=== PATIENT | male | born 1965 | race Caucasian/White ===

== ENCOUNTER → 2021-05-08 | Outpatient (CLI) | payer MEDICARE, OTHER ==
--- NOTE | 2021-05-08 15:30 | CT ---
EXAMINATION TYPE: CT abdomen pelvis wo con DATE OF EXAM: 05/08/2021 COMPARISON: 01/15/2017 HISTORY: 56-year-old male N20.0, right flank pain CT DLP: 745 mGycm. Automated exposure control for dose reduction was used. TECHNIQUE: Contiguous axial scanning of the abdomen and pelvis without IV contrast. Coronal and sagit lakeisha reconstructions performed. FINDINGS: Heart normal size with trace anterior pericardial fluid. Dependent atelectasis posterior right base, improved from 2017. Mild diffuse bronchial wall thickening can be seen with bronchitis or asthma. No pleural effusion. Liver enlarged at 20.1 cm. Otherwise, noncontrast appearance of the liver, adrenal glands, and left k idney with extrarenal pelvis show no gross abnormality. Cholecystectomy clips. A 1.2 cm nodular area in tail of pancreas is unchanged from 2017 suggesting a benign etiology. Anterior hilar splenule and mild splenomegaly of 14.2 cm (versus 13.4 cm, previously). There is a large 1.7 cm calculus centered within the right renal pelvis. There is fullness of the rig ht renal collecting system but without mychal hydronephrosis. Urothelial thickening and minimal surrou nding fat stranding is noted. No dilated small bowel, free fluid, or free air. No mesenteric or retroperitoneal lymphadenopathy. Some hyperdense, inspissated material within a normal caliber appendix. No surrounding inflammation. Some submucosal fat deposition along the right hemicolon probably the opacity. Mild overall stool bur den. No pericolonic inflammatory change. Mild circumferential bladder wall thickening. Prostate gland enlargement 5.0 cm wide. Pelvic phleboli th. No abnormal fluid collection in the pelvis or pelvic lymphadenopathy. Patulous bilateral inguinal canals, right more so than the left. Bones: Bone island right inferior pubic ramus. [id number] degenerative change both hips. Left L 5 hemisacralization. Facet arthropathy lower lumbar spine. IMPRESSION: 1. A 1.7 cm stone within the right renal pelvis. While there is no evidence for obstruction, there is associated urothelial thickening and minimal adjacent fat stranding. This may represent inflammation secondary to irritation from the stone. Correlate to exclude ascending urinary tract infection. 2. Circumferential bladder wall thickening could represent cystitis or chronic bladder wall hypertrop hy. There is prostatomegaly of 5.0 cm wide. 3. Hepatosplenomegaly (liver 20.1 cm, spleen 14.2 cm).
== END | disposition home or self-care (01) ==
LOC: RADCTMAIN 14:44
PROVIDERS: ATTEND Urology
DX: N20.0 Calculus of kidney (principal); R16.2 Hepatomegaly with splenomegaly, not elsewhere classified; N32.89 Other specified disorders of bladder
CPT/HCPCS: 74176

== ENCOUNTER → 2021-05-14 | Outpatient (CLI) | payer MEDICARE, OTHER ==
[2021-05-14 15:18] LABS: Basophils # (A) 0.1 k/uL (0-0.2); Basophils % (A) 1 %; Eosinophils # (A) 0.3 k/uL (0-0.7); Eosinophils % (A) 3 %; HCT 50.5 % (39.0-53.0); HGB 15.9 gm/dL (13.0-17.5); Lymphocytes % (A) 26 %; MCH 27.9 pg (25.0-35.0); MCHC 31.6 g/dL (31.0-37.0); MCV 88.4 fL (80.0-100.0); Mean Platelet Volume 6.4; Monocytes # (A) 0.5 k/uL (0-1.0); Monocytes % (A) 6 %; Neutrophils # (A) 4.8 k/uL (1.3-7.7); Neutrophils % (A) 62 %; Platelet Count 332 k/uL (150-450); RBC 5.71 m/uL (4.30-5.90); RDW 13.7 % (11.5-15.5); WBC 7.7 k/uL (3.8-10.6)
[2021-05-15 01:16] LABS: Appearance,Urine Clear (Clear); Color,Urine Yellow (Yellow)
[2021-05-15 01:39] LABS: African American GFR (CKD) 93.2 (60.0-200.0); Albumin 4.2 g/dL (3.8-4.9); Anion Gap 9.8 mmol/L (10.00-18.00); Calcium 9.4 mg/dL (8.7-10.3); Carbon Dioxide 23.9 mmol/L (20.0-27.5); Non-African American GFR(CKD) 80.5 (60.0-200.0); Potassium 4.5 mmol/L (3.5-5.5); Total Bilirubin 0.3 mg/dL (0.30-1.20); Total Protein 6.7 g/dL (6.2-8.2)
[2021-05-15 01:47] LABS: Bacteria,Urine None Seen /HPF (None Seen)
== END | disposition home or self-care (01) ==
LOC: LABPAT 14:34
PROVIDERS: ATTEND Urology
DX: Z01.812 Encounter for preprocedural laboratory examination (principal); N40.1 Benign prostatic hyperplasia with lower urinary tract symptoms; R31.0 Gross hematuria
CPT/HCPCS: 80053; 81001; 85025; 87086

== ENCOUNTER 2021-05-27 10:03 | Day surgery (SDC) | payer MEDICARE, OTHER ==
--- NOTE | 2021-05-25 19:22 | P.GSHP ---
History of Present Illness H&P Date: 05/25/21 56yo male with a painful 1.7 cm left renal pelvic stone shoe comes for a right pcnl The risk, complications and alternatives have been discussed - Constitutional Constitutional: Denies chills, Denies fever - EENT Eyes: denies blurred vision, denies pain Ears, nose, mouth and throat: Denies headache, Denies sore throat - Cardiovascular Cardiovascular: Denies chest pain, Denies shortness of breath - Respiratory Respiratory: Denies cough, Denies 7 - Gastrointestinal Gastrointestinal: Denies abdominal pain, Denies diarrhea, Denies nausea, Denies vomiting - Genitourinary (Female) Genitourinary: Denies dysuria, Denies hematuria - Genitourinary (Male) Genitourinary: Denies dysuria, Denies hematuria - Musculoskeletal Musculoskeletal: Denies myalgias - Integumentary Integumentary: Denies pruritus, Denies rash - Neurological Neurological: Denies numbness, Denies weakness - Psychiatric Psychiatric: Denies anxiety, Denies depression - Endocrine Endocrine: Denies fatigue, Denies weight change Past Medical History Past Medical History: GERD/Reflux, Hyperlipidemia Additional Past Medical History / Comment(s): Mentally impaired-high functi oning, umbilical hernia History of Any Multi-Drug Resistant Organisms: None Reported Past Surgical History: Hernia Repair, Tonsillectomy Additional Past Surgical History / Comment(s): umbilical hernia repair Past Anesthesia/Blood Transfusion Reactions: No Reported Reaction Past Psychological History: Anxiety Additional Psychological History / Comment(s): Pt resides with his mother who is his legal guardian. He is mentally impaired-high functioning. He uses no assistive devices. He does not drive, his mother takes him to [employer]. Past Alcohol Use History: None Reported Additional Past Alcohol Use History / Comment(s): Pt started smoking in his 20's and is a ppd smoker. Past Drug Use History: None Reported - Past Family History Father Family Medical History: Respiratory Disorder Additional Family Medical History / Comment(s): Father at the age of 54yrs from lung disease. Mother Family Medical History: Hypertension Medications and Allergies Home Medications Medication Instructions Recorded Confirmed Type ARIPiprazole 20 mg PO DAILY 01/15/17 01/15/17 History ARIPiprazole [Abilify] 5 mg PO DAILY 01/15/17 01/15/17 History Cholecalciferol (Vitamin D3) 2,000 unit PO DAILY 01/15/17 01/15/17 History [Vitamin D3] Cyclobenzaprine HCl 10 mg PO TID 01/15/17 01/15/17 History Ezetimibe 10 mg PO DAILY 01/15/17 01/15/17 History Fenofibrate 160 mg PO DAILY 01/15/17 01/15/17 History Fish Oil/Dha/Epa [Fish Oil 1,200 1 cap PO DAILY 01/15/17 01/15/17 History mg Fish Oil] Multivitamins, Thera [Multivitamin 1 tab PO DAILY 01/15/17 01/15/17 History (formulary)] Omeprazole 20 mg PO DAILY 01/15/17 01/15/17 History PARoxetine HCL 60 mg PO QAM 01/15/17 01/15/17 History Pravastatin Sodium [Pravachol] 40 mg PO DAILY 01/15/17 01/15/17 History Amoxic-Pot Clav 875-125Mg 1 tab PO Q12HR #10 tablet 01/19/17 Rx [Augmentin 875-125] HYDROcodone/APAP 5-325MG [[place] 1 each PO Q6H PRN #20 tab 01/19/17 Rx 5-325] Allergies Allergy/AdvReac Type Severity Reaction Status Date / Time No Known Allergies Allergy Verified 01/15/17 02:34 Surgical - Exam - General well developed, well nourished - Eyes PERRL - ENT no hearing loss - Neck trachea midline - Respiratory normal expansion, normal respiratory effort - Cardiovascular Rhythm: regular - Abdomen Abdomen: soft, non tender - Genitourinary normal penis with no external lesions, testicles present - Integumentary no rash - Neurologic normal coordination - Musculoskeletal normal gait, normal posture - Psychiatric oriented to time, oriented to person, oriented to place, speech is normal, memory intact Results - Imaging CT scan - abdomen: report reviewed, image reviewed CT scan - pelvis: report reviewed, image reviewed Assessment and Plan Assessment: Impression: Right renal stone, large, dense Plan: right PCNL
[2021-05-26 10:27] VITALS: BMI 24.7
[~2021-05-27 10:03] MED LIST: DEXAMETHASONE SOD PHOSPHATE 4 MG/ML 1 ML VIAL IV ONE; LIDOCAINE 1% (10MG/ML) FOR IV START INTRADERMA PRN; ONDANSETRON 4 MG/2 ML VIAL IVP ONE; SCOPOLAMINE 1.5MG/72HR PATCH TRANSDERM ONE
[2021-05-27] MEDS: LACTATED RINGERS 1,000 ML IV SCH (10:59)
--- NOTE | 2021-05-27 11:05 | XR ---
KUB HISTORY: Kidney stones Frontal KUB and 2 images correlated to previous exam CT 05/08/2021 The oval calcification seen in the right renal pelvis on prior CT is seen in the right hemiabdomen me asuring 2 cm in greatest dimension. Lung bases are clear. No evident bowel obstruction or pneumoperit oneum. impression: Right-sided nephrolithiasis.
[2021-05-27] MEDS ORDERED: LIDOCAINE 1% INJ 10MG/ML (20 ML MDV) ONE (12:07)
[2021-05-27] MEDS ORDERED: HYDROmorphone (PF) 1 MG/ML ONE (12:07)
[2021-05-27] MEDS ORDERED: fentaNYL (PF) 50 MCG/ML 2 ML AMP ONE (12:07)
[2021-05-27] MEDS ORDERED: ROCURONIUM 10 MG/ML (5 ML VIAL) IV ONE (12:07)
[2021-05-27] MEDS ORDERED: PROPOFOL 10 MG/ML 20 ML VIAL IV ONE (12:07)
[2021-05-27] MEDS ORDERED: SUCCINYLCHOLINE CHLORIDE 100 MG/5 ML SYR IV ONE (12:07)
[2021-05-27] MEDS ORDERED: MIDAZOLAM 2 MG/2 ML VIAL ONE (12:07)
[2021-05-27] MEDS ORDERED: IOPAMIDOL-370 50ML BTL IRRIGATION ONE (12:48)
[2021-05-27] MEDS ORDERED: MAG HYDROX/AL HYDROX/SIMETH 30 ML CUP PO PRN (13:37)
[2021-05-27] MEDS ORDERED: ACETAMINOPHEN TAB 500 MG TAB PO PRN (13:37)
[2021-05-27] MEDS ORDERED: ONDANSETRON 4 MG/2 ML VIAL IVP PRN (13:37)
[2021-05-27] MEDS ORDERED: ACETAMINOPHEN TAB 325 MG TAB PO PRN (13:37)
[2021-05-27] MEDS ORDERED: MORPHINE SULFATE 2 MG/ML SYRINGE IVP PRN (13:39)
[2021-05-27] MEDS ORDERED: HYDROcodone/APAP 5-325MG 1 EACH TAB PO PRN (13:40)
[2021-05-27] MEDS ORDERED: LORazepam 2 MG/ML INJ IV PRN (13:40)
--- NOTE | 2021-05-27 13:45 | FL ---
EXAMINATION TYPE: FL Perc Nephrostomy New Access DATE OF EXAM: 05/27/2021 COMPARISON: CT scan 05/08/2021 HISTORY: Right nephrolithiasis. PROCEDURE: Maximal barrier technique was utilized, hand hygiene obtained with soap and water and alcohol-based h and rub. The skin overlying the left kidney was localized using fluoroscopy and the overlying skin p repped and draped. Skin marlyn was made with a scalpel. Access was gained under fluoroscopy, following placement of a ureteral occlusion balloon by the referring clinician and instillation of air in the renal collecting system with a 21-gauge needle to the right} kidney. A suitable posterior calyx was chosen at the lower pole. A 0.018 inch wire was advanced. The access site was dilated , access sit e was upsized, safety wire deployed and subsequently a sheath was advanced into the renal pelvis foll owing dilation with balloon along the tract. The patient underwent nephrolithotomy by the referring c linician. The patient remained in stable condition without complication. The patient was discharge d to observation in the care of anesthesia. 5.36 minutes fluoroscopy time, 5 intraoperative C-arm images document the procedure IMPRESSION: STATUS POST right NEPHROSTOMY PLACEMENT FOR NEPHROLITHOTOMY WITH FLUOROSCOPIC GUIDANCE. THIS PROCEDU RE PERFORMED BY THE UNDERSIGNED.
--- NOTE | 2021-05-27 13:48 | P.OP ---
Date of Procedure: 05/27/21 Preoperative Diagnosis: Right renal stone (large, 2 cm) Postoperative Diagnosis: Same Procedure(s) Performed: Cystoscopy, placement of ureteral catheter right, percutaneous nephrostomy (Dr. Garner) percutaneous nephrostolithotomy with ultrasound, placement of 10 J nephrostomy Anesthesia: TAMI Surgeon: Vazquez Vizcaino Estimated Blood Loss (ml): 75 Pathology: other (Stone) Condition: stable Disposition: PACU Indications for Procedure: The patient is a 56-year-old mentally handicapped individual with a large stone in the right renal pelvis. It measured over 2 cm today. It is causing pain. He comes for a right percutaneous nephrostolithotomy Description of Procedure: The patient is brought to the operating suite. He is given a general endotracheal anesthesia on the transport gurney. He's placed in a frog position with a sterile prep and drape. Cystoscopy with a 21-[place] sheath and Foroblique lens identifies a normal urethra. The prostate is not obstructing. The right ureteral orifice is identified and intubated with a 5-[place] occluding balloon catheter this passed up into the renal pelvis.. The ureteral catheter secured to a 16-[place] Rodríguez catheter which has been introduced into the bladder The patient was placed in a prone position. Care to airways and extremities are maintained. After sterile prep and drape Dr. Garner performed percutaneous access to a right lower pole calyx. the track is then dilated to 30-[place]. The working sheath was passed into the kidney. Clot is removed out of the kidney and the stone was seen in the renal pelvis. With the ultrasonic wand the stone was broken into smaller pieces and basketed out of the collecting system are suctioned out of the collecting system with the ultrasonic wand. At the end of the procedure I passed the flexible nephroscope throughout the collecting system. Clot and stone fragments are removed with the basket. I passed this down the ureter. I then look under fluoroscopy and see no remaining stone. A 10 J nephrostomy tube was placed in the kidney over the working wire. It is secured the skin with 2-0 silk. The wires and catheters are removed other than the nephrostomy tube and Rodríguez catheter. The patient's awakened and returned recovery room good condition. Blood loss is 75 mL.
[2021-05-27] MEDS ORDERED: HYDROmorphone 1 MG/ML 1 ML SYRINGE ONE (14:00)
[2021-05-27] MEDS: HYDROmorphone 0.5 MG/0.5 ML SYRINGE IVP PRN ×2 (14:01→14:09)
[2021-05-27] MEDS: DEXTROSE 5%-0.45% NACL 1,000 ML IV SCH (15:20)
[2021-05-27] MEDS ORDERED: FENOFIBRATE 160 MG TAB PO SCH (15:30)
[2021-05-27 15:31] VITALS: RESP 16
[2021-05-27] MEDS: KETOROLAC 30 MG/ML 1 ML VIAL IVP PRN ×2 (15:46→21:29)
[2021-05-27] MEDS: buPROPion SR 150 MG TABLET.ER PO SCH (21:28)
[2021-05-27] MEDS: hydrOXYzine pamoate 25 MG CAP PO SCH (21:28)
[2021-05-28 04:23] VITALS: BP 105/62; PULSE 93; TEMP 97.9
[2021-05-28] MEDS: DEXTROSE 5%-0.45% NACL 1,000 ML IV SCH (04:31)
[2021-05-28] MEDS: KETOROLAC 30 MG/ML 1 ML VIAL IVP PRN (04:31)
[2021-05-28] MEDS: LACTATED RINGERS 1,000 ML IV SCH (04:47)
[2021-05-28] MEDS: hydrOXYzine pamoate 25 MG CAP PO SCH (09:00)
[2021-05-28] MEDS ORDERED: PRAVASTATIN SODIUM 40 MG TAB PO SCH (09:00)
[2021-05-28] MEDS ORDERED: ARIPiprazole 15 MG TAB PO SCH (09:00)
[2021-05-28] MEDS ORDERED: EZETIMIBE 10 MG TAB PO SCH (09:00)
[2021-05-28] MEDS: buPROPion SR 150 MG TABLET.ER PO SCH (09:01)
--- NOTE | 2021-05-28 09:28 | P.DS ---
Providers Attending physician: Vazquez Vizcaino Primary care physician: Jarrod Ramon MD Hospital Course: 56 yo male with hx of 2 cm right sided PCNL on 05/27/21, please see op note dated 05/27/21 for surgery details. Patient was admitted to the hospital post operatively. He did well in post op period. Rodríguez was discharged on POD #1. At time of discharge he was tolerating diet, ambulating and pain was well controlled. He will f/u in one week with Dr Vizcaino for catheter nephrostomy tube removal. Plan - Discharge Summary Discharge Rx Participant: Yes New Discharge Prescriptions: New Ketorolac [Toradol] 10 mg PO Q6HR #15 tab Cephalexin [Keflex] 500 mg PO Q8HR #15 cap No Action Multivitamins, Thera [Multivitamin (formulary)] 1 tab PO DAILY Fish Oil/Dha/Epa [Fish Oil 1,200 mg Fish Oil] 1 cap PO DAILY Fenofibrate 160 mg PO 1530 Pravastatin Sodium [Pravachol] 40 mg PO DAILY Cholecalciferol (Vitamin D3) [Vitamin D3] 2,000 unit PO DAILY buPROPion SR [Wellbutrin SR] 450 mg PO BID Acetaminophen [Tylenol Extra Strength] 500 mg PO DIRECTED PRN PRN Reason: Pain ARIPiprazole [Abilify] 30 mg PO DAILY Ezetimibe [Zetia] 10 mg PO DAILY hydrOXYzine pamoate [Vistaril] 50 mg PO BID Discharge Medication List Cholecalciferol (Vitamin D3) [Vitamin D3] 2,000 unit PO DAILY 01/15/17 [History] Fenofibrate 160 mg PO 1530 01/15/17 [History] Fish Oil/Dha/Epa [Fish Oil 1,200 mg Fish Oil] 1 cap PO DAILY 01/15/17 [History] Multivitamins, Thera [Multivitamin (formulary)] 1 tab PO DAILY 01/15/17 [History] Pravastatin Sodium [Pravachol] 40 mg PO DAILY 01/15/17 [History] ARIPiprazole [Abilify] 30 mg PO DAILY 05/26/21 [History] Acetaminophen [Tylenol Extra Strength] 500 mg PO DIRECTED PRN 05/26/21 [History] Ezetimibe [Zetia] 10 mg PO DAILY 05/26/21 [History] buPROPion SR [Wellbutrin SR] 450 mg PO BID 05/26/21 [History] hydrOXYzine pamoate [Vistaril] 50 mg PO BID 05/26/21 [History] Cephalexin [Keflex] 500 mg PO Q8HR #15 cap 05/28/21 [Rx] Ketorolac [Toradol] 10 mg PO Q6HR #15 tab 05/28/21 [Rx] Follow up Appointment(s)/Referral(s): Vazquez Vizcaino MD [STAFF PHYSICIAN] - 06/02/21 9:20 am Patient Instructions/Handouts: Cephalexin (By mouth), Ketorolac (By mouth), Nephrostomy Tube Care (DC) Activity/Diet/Wound Care/Special Instructions: Increase fluid intake It's normal to see blood in the urine No heavy lifting or straining Discharge Disposition: HOME SELF-CARE
== END 2021-05-28 11:54 | disposition home or self-care (01) ==
LOC: OR 10:03 → 5NMEDONC 13:22 → OR 05-28 11:54
PROVIDERS: ATTEND Urology
DX: Z79.899 Other long term (current) drug therapy (principal); K21.9 Gastro-esophageal reflux disease without esophagitis; E78.5 Hyperlipidemia, unspecified; Z20.822 Contact with and (suspected) exposure to COVID-19; F78.A9 Other genetic related intellectual disability; Z98.890 Other specified postprocedural states; F41.9 Anxiety disorder, unspecified; F17.210 Nicotine dependence, cigarettes, uncomplicated; Z83.6 Family history of other diseases of the respiratory system; Z82.49 Family history of ischemic heart disease and other diseases of the circulatory system; Z87.442 Personal history of urinary calculi
CPT/HCPCS: 86900; 86901; 86850; 82365; 87635; 50432; 74018; 36415; 50080; C1758; C1769 ×4; C2628; C1729 ×2; J1100; S0106 ×2; J0690; J2405; J1885 ×2; J1170; Q9967

== ENCOUNTER 2024-11-18 10:59 | Emergency (ER) | payer MEDICARE, OTHER ==
--- NOTE | 2024-11-18 11:36 | ED ---
General Adult HPI - General Chief complaint: Recheck/Abnormal Lab/Rx Stated complaint: R sided flank pain Time Seen by Provider: 11/18/24 11:14 Source: patient, family, RN notes reviewed Mode of arrival: ambulatory Limitations: no limitations - History of Present Illness Initial comments: This is a 59-year-old male with history including mental impairment and umbilical hernia presenting with mother for right flank/rib pain (8/10) x 4 days. Patient denies recent prolonged periods of immobilization, surgery, trauma, fall or known cause for pain. States pain worsens with inhalation and coughing as well as when sleeping on side. Denies dysuria, hematuria, oliguria, fever, chills, shortness of breath Onset/Timin -: days(s) Location: chest, right Radiation: non-radiation Severity scale (1-10): 8 Consistency: constant Improves with: immobilization Worsens with: movement, other (Cough, inhalation) Associated Symptoms: denies other symptoms Treatments Prior to Arrival: none - Related Data Home Medications Medication Instructions Recorded Confirmed Fenofibrate 160 mg PO DAILY 01/15/17 06/17/22 Fish Oil/Dha/Epa [Fish Oil 1,200 1 cap PO DAILY 01/15/17 06/17/22 mg Fish Oil] Multivitamins, Thera [Multivitamin 1 tab PO DAILY 01/15/17 06/17/22 (formulary)] Pravastatin Sodium [Pravachol] 40 mg PO DAILY 01/15/17 06/17/22 Ezetimibe [Zetia] 10 mg PO DAILY 05/26/21 06/17/22 buPROPion SR [Wellbutrin SR] 300 mg PO DAILY 05/26/21 06/17/22 hydrOXYzine pamoate [Vistaril] 50 mg PO BID@0700,1530 05/26/21 06/17/22 Cholecalciferol [Vitamin D3 (25 50 mcg PO DAILY 06/17/22 06/17/22 Mcg = 1000 Iu)] Divalproex ER [Depakote ER] 1,000 mg PO DIRECTED 06/17/22 06/17/22 Propranolol [Inderal] 10 mg PO BID 06/17/22 06/17/22 risperiDONE 1 mg PO BID 06/17/22 06/17/22 Previous Rx's Medication Instructions Recorded Ibuprofen [Motrin] 800 mg PO Q8HR PRN #30 tab 11/18/24 Lidocaine 4% Patch 1 patch TOPICAL Q24H PRN #10 patch 11/18/24 Allergies Allergy/AdvReac Type Severity Reaction Status Date / Time No Known Allergies Allergy Verified 11/18/24 11:06 Review of Systems ROS Statement: Those systems with pertinent positive or pertinent negative responses have been documented in the HPI. ROS Other: All systems not noted in ROS Statement are negative. Past Medical History Past Medical History: GERD/Reflux, Hyperlipidemia Additional Past Medical History / Comment(s): Mentally impaired-high functioning, umbilical hernia History of Any Multi-Drug Resistant Organisms: None Reported Past Surgical History: Hernia Repair, Tonsillectomy Additional Past Surgical History / Comment(s): umbilical hernia repair Past Anesthesia/Blood Transfusion Reactions: No Reported Reaction Past Psychological History: Anxiety Smoking Status: Current every day smoker Past Alcohol Use History: None Reported Past Drug Use History: None Reported - Past Family History Father Family Medical History: Deep Vein Thrombosis (DVT) Additional Family Medical History / Comment(s): Father at the age of 54yrs from lung disease. Mother Family Medical History: Hypertension General Exam Limitations: no limitations General appearance: alert, in no apparent distress Head exam: Present: atraumatic, normocephalic, normal inspection Eye exam: Present: normal appearance, PERRL, EOMI. Absent: scleral icterus, conjunctival injection, periorbital swelling ENT exam: Present: normal exam, mucous membranes moist Neck exam: Present: normal inspection. Absent: tenderness, meningismus, lymphadenopathy Respiratory exam: Present: normal lung sounds bilaterally, chest wall tenderness (Positive right axillary inferior rib point tenderness without obvious crepitus. Pain with anterior/posterior squeeze of chest wall. Positive posterior/anterior right rib tenderness on palpation). Absent: respiratory distress, wheezes, rales, rhonchi, stridor, accessory muscle use, decreased breath sounds, prolonged expiratory Cardiovascular Exam: Present: regular rate, normal rhythm, normal heart sounds. Absent: systolic murmur, diastolic murmur, rubs, gallop, clicks GI/Abdominal exam: Present: soft, normal bowel sounds. Absent: distended, tenderness, guarding, rebound, rigid Extremities exam: Present: normal inspection, full ROM, normal capillary refill. Absent: tenderness, pedal edema, joint swelling, calf tenderness Back exam: Present: normal inspection. Absent: CVA tenderness (R), CVA tenderness (L) Neurological exam: Present: alert, oriented X3, CN II-XII intact Psychiatric exam: Present: normal affect, normal mood Skin exam: Present: warm, dry, intact, normal color. Absent: rash Course Vital Signs 11/18/24 11:04 Temperature 98 F Pulse Rate 74 Respiratory 20 Rate Blood Pressure 130/88 O2 Sat by Pulse 99 Oximetry Medical Decision Making - Medical Decision Making Was pt. sent in by a medical professional or institution (, PA, PATTERN CLERK, urgent care, hospital, or residential...) When possible be specific @ -[No] Did you speak to anyone other than the patient for history (EMS, parent, family, police, friend...)? What history was obtained from this source @ -Mother provided portion of HPI Did you review nursing and triage notes (agree or disagree)? Why? @ -[I reviewed and agree with nursing and triage notes] Were old charts reviewed (outside hosp., previous admission, EMS record, old EKG, old radiological studies, urgent care reports/EKG's, residential records)? Report findings @ -[No old charts were reviewed] Differential Diagnosis (chest pain, altered mental status, abdominal pain women, abdominal pain men, vaginal bleeding, weakness, fever, dyspnea, syncope, headache, dizziness, GI bleed, back pain, seizure, CVA, palpatations, mental health, musculoskeletal)? @ -Differential Musculoskeletal Muscular strain, contusion, ligament sprain, fracture, arthritis, septic arthritis, bursitis, cellulitis, muscle spasm, nerve compression, DVT, arterial occlusion, herpes zoster, electrolyte abnormality, tumor.... This is not meant to be in all inclusive list EKG interpreted by me (3pts min.). @ -Not done X-rays interpreted by me (1pt min.). @ -Right rib x-ray shows no acute fracture or dislocation CT interpreted by me (1pt min.). @ -[None done] U/S interpreted by me (1pt. min.). @ -[None done] What testing was considered but not performed or refused? (CT, X-rays, U/S, labs)? Why? @ -[None] What meds were considered but not given or refused? Why? @ -[None] Did you discuss the management of the patient with other professionals (pr ofessionals i.e. , PA, PATTERN CLERK, lab, RT, psych nurse, home health care social worker, hearing specialist, teacher, catapult and arresting gear officer, case checker)? Give summary @ -[No] Was smoking cessation discussed for >3mins.? @ -[No] Was critical care preformed (if so, how long)? @ -[No] Were there social determinants of health that impacted care today? How? (Homelessness, low income, unemployed, alcoholism, drug addiction, transportation, low edu. Level, literacy, decrease access to med. care, fdc, rehab)? @ -[No] Was there de-escalation of care discussed even if they declined (Discuss DNR or withdrawal of care, Hospice)? DNR status @ -[No] What co-morbidities impacted this encounter? (DM, HTN, Smoking, COPD, CAD, Cancer, CVA, ARF, Chemo, Hep., AIDS, mental health diagnosis, sleep apnea, morbid obesity)? @ -[None] Was patient admitted / discharged? Hospital course, mention meds given and route, prescriptions, significant lab abnormalities, going to OR and other pertinent info. @ -Wells criteria0 points. Likely not PE based on this criteria. Patient notes pain relief with lidocaine patch. Undiagnosed new problem with uncertain prognosis? @ -[No] Drug Therapy requiring intensive monitoring for toxicity (Heparin, Nitro, Ins ulin, Cardizem)? @ -[No] Were any procedures done? @ -[No] Diagnosis/symptom? @ -Rib pain Acute, or Chronic, or Acute on Chronic? @ -Acute Uncomplicated (without systemic symptoms) or Complicated (systemic symptoms)? @ -Uncomplicated Side effects of treatment? @ -[No] Exacerbation, Progression, or Severe Exacerbation? @ -[No] Poses a threat to life or bodily function? How? (Chest pain, [place], [place], pneumonia, PE, COPD, DKA, ARF, appy, cholecystitis, CVA, Diverticulitis, Homicidal, Suicidal, threat to staff... and all critical care pts) @ -[No] Disposition Clinical Impression: Rib pain on right side Disposition: HOME SELF-CARE Condition: Good Instructions (If sedation given, give patient instructions): Costochondritis (ED) Additional Instructions: Apply cold compress to affected area for 10 minutes up to 4 times daily. Alternate Tylenol/Motrin before hours for pain. Follow-up with primary care regarding any ongoing pain. Prescriptions: Lidocaine 4% Patch 1 patch TOPICAL Q24H PRN #10 patch PRN Reason: Pain Ibuprofen [Motrin] 800 mg PO Q8HR PRN #30 tab PRN Reason: Pain Is patient prescribed a controlled substance at d/c from ED?: No Referrals: Ayla Sethi MD [Primary Care Provider] - 1-2 days Time of Disposition: 12:20
[2024-11-18] MEDS: ACETAMINOPHEN TAB 500 MG TAB PO STA (11:42)
[2024-11-18] MEDS: LIDOCAINE 4% PATCH TOPICAL ONE (11:43)
[2024-11-18] MEDS: KETOROLAC 15 MG/ML 1 ML VIAL IM STA (11:43)
--- NOTE | 2024-11-18 12:17 | XR ---
EXAMINATION TYPE: XR ribs RT w pa chest xray DATE OF EXAM: 11/18/2024 11:56 AM COMPARISON: None. CLINICAL INDICATION: Male, 59 years old with history of Axillary rib pain, worse with inhalation and cough, TECHNIQUE: Single view of the chest 4 views of the ribs are submitted. FINDINGS: The lungs are clear. No Evidence for pneumothorax. No evidence for focal contusion. Mediastinal st ructures are midline. Evaluation of the ribs fails to demonstrate evidence for displaced rib fractur e or secondary sign of rib fracture. Soft tissue radiopaque foreign body noted. IMPRESSION: Negative study [facility]ham, , 11/18/2024 12:15 PM
[2024-11-18 13:04] VITALS: BP 124/78; PULSE 78; RESP 18; TEMP 97.8
== END 2024-11-18 13:04 | disposition home or self-care (01) ==
LOC: EC 10:59
DX: R07.81 Pleurodynia (principal); F17.200 Nicotine dependence, unspecified, uncomplicated
CPT/HCPCS: 71101; 99284; 96372; J1885